=== PATIENT | male | born 1955 | race Caucasian/White ===

== ENCOUNTER 2023-06-07 21:17 | Emergency (ER) | payer BC, SELFPAY ==
[2023-06-07] VITALS (7 sets, daily range): BP systolic 132–150; BP diastolic 74–89; PULSE 98–120; RESP 20–22; TEMP 38; O2SAT 88–98; BMI 28.7
--- NOTE | 2023-06-07 22:32 | ED_ITS ---
HPI - General Adult General Chief complaint: Back Injury/Pain Stated complaint: fever-Had back surgery-Pain Time Seen by Provider: 06/07/23 21:49 History of Present Illness HPI narrative: hx small cell lung ca. Last chemo was last week . Had Spinal ablation 05/25 for chronic back pain. Comes into ED with increasing back pain took cyclobenza at 1900- did not try oxycodone which pt was prescribed. Also took THC gummy at 1600 for the pain. Was in ED last weekend for back pain. Rating back pain 6/7 no numbness/ tingling. Also has temp at home of 100.7 67-year-old man presenting to the emergency depart with complaint of back pain and fever. Pain and been in a band across his upper back and now it is centered he gestures to his mid sternum as in indication of where it is in his back. Has now also developed a fever as of today noting he was not feeling good. Primary complaint is that of pain. Is not complaining of increased shortness of breath. There are no new radicular symptoms. Has not been coughing. Is receiving chemotherapy for small cell lung cancer. 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 Approximately 4 weeks ago did receive radiation to the back and then about 2 weeks ago on 05/25 fractures were repaired with cement and ablation was also done. While pain was still present, was overall improved with pain so much that he felt he could picker feeder a storm door 3 days ago and had sudden increase in pain which has only escalated. He had actually been improved post ablation since 05/25 until this lifting episode. When the pain began to increase he did take 2 of the pain pills sounds like oxycodone but did not do anything. And then today was given cyclobenzaprine by spouse; she was afraid of taking the oxycodone at the same time. He does not normally take opiates apparently; has been getting by with acetaminophen. There is an underlying allergy to morphine with a history of difficulty breathing. Further questioning reveals he had been seen for this pain 2 days ago in emergency department. Imaging was not done but he did not have a fever at that time. Related Data Home Medications Medication Instructions Recorded Confirmed amlodipine 10 mg tablet 10 mg PO DAILY 06/07/23 06/07/23 lisinopril 20 mg tablet 20 mg PO DAILY 06/07/23 06/07/23 oxycodone 5 mg tablet 5 mg PO QID PRN 06/07/23 06/07/23 Allergies Allergy/AdvReac Type Severity Reaction Status Date / Time morphine Allergy Verified 06/07/23 21:41 Review of Systems Status of ROS: Reports: 6 or more systems reviewed and unremarkable except as noted in History and below [facility] Social History Smoking Status: Never smoker Do you use any of these nicotine containing products: None How often do you have a drink containing alcohol: never AUDIT-C Alcohol total score: 0 Non-prescribed substance use: denies use Exam Narrative: Exam Narrative: Flushed and very restless in pain. Belly breathing. Abdomen is protuberant soft and nontender. Oropharynx is dry. Cranial nerves 2-12 intact. Well-per fused peripherally. Skin as noted flushed. supervisor coke handling his face and back. Does not want to move though generally as it seems to exacerbate his pain. With assisted him able to manipulate him up to examine his back. I do not see any swellings or inflammation. Upper thoracic is the area of ablation though he did have 1 in the lower left. Lumbar area as well. Sites of procedures are not visible. He is little sore to palpation in the paraspinal musculature but not midline. Const: Vital Signs, click to edit/add: Vital Signs - 24 hr 06/07/23 21:52 06/07/23 22:29 06/07/23 23:07 Temperature 100.4 F H Pulse Rate Pulse Rate [Pulse Oximeter] 120 H 114 H 105 H Respiratory Rate 20 22 20 Blood Pressure Blood Pressure [Ri ght Upper Arm] 134/74 150/89 H Pulse Oximetry 98 94 91 Oxygen Delivery Me thod Room Air Room Air Room Air 06/07/23 23:14 06/07/23 23:15 06/07/23 23:30 Temperature Pulse Rate 105 H 103 H 99 Pulse Rate [Pulse Oximeter] Respiratory Rate Blood Pressure 132/83 Blood Pressure [Ri ght Upper Arm] Pulse Oximetry 91 88 92 Oxygen Delivery Me thod 06/07/23 23:45 06/08/23 00:01 06/08/23 00:01 Temperature Pulse Rate 98 98 98 Pulse Rate [Pulse Oximeter] Respiratory Rate Blood Pressure 137/74 137/74 Blood Pressure [Ri ght Upper Arm] Pulse Oximetry 92 91 91 Oxygen Delivery Me thod 06/08/23 01:01 Temperature Pulse Rate 95 Pulse Rate [Pulse Oximeter] Respiratory Rate Blood Pressure 138/87 Blood Pressure [Ri ght Upper Arm] Pulse Oximetry 94 Oxygen Delivery Me thod Documenting provider has reviewed patient's vital signs: yes Course Vital Signs Vital signs: Initial Vital Signs Temperature 100.4 F H 06/07/23 21:52 Temperature Source Temporal Artery Scan 06/07/23 21:52 Pulse Rate 120 H 06/07/23 21:52 Pulse Rhythm Regular 06/07/23 21:52 Respiratory Rate 20 06/07/23 21:52 Blood Pressure 134/74 06/07/23 21:52 Blood Pressure Mean 94 06/07/23 21:52 Pulse Oximetry 98 06/07/23 21:52 Oxygen Delivery Method Room Air 06/07/23 21:52 Vital Signs Temperature 100.4 F H 06/07/23 21:52 Pulse Rate 120 H 06/07/23 21:52 Respiratory Rate 20 06/07/23 21:52 Blood Pressure 134/74 06/07/23 21:52 Pulse Oximetry 98 06/07/23 21:52 Oxygen Delivery Method Room Air 06/07/23 21:52 Temperature 100.4 F H 06/07/23 21:52 Pulse Rate 95 06/08/23 01:01 Respiratory Rate 20 06/07/23 23:07 Blood Pressure 138/87 06/08/23 01:01 Pulse Oximetry 94 06/08/23 01:01 Oxygen Delivery Method Room Air 06/07/23 23:07 Medical Decision Making [facility] Narrative Medical decision making narrative: First need to control his pain. Seems as though this was an exacerbation an escalation of pain rather quickly after a particular event. Seems to have some muscular spasm? Fever has also evolved of unclear etiology at this time. Is tachycardic I think a a combination of the fever and pain response. Certainly in differential remains infection in spine secondary to this procedure. Otherwise in the setting of chemotherapy this may might also be a fever of unknown origin. IVs established. Will be drawing blood cultures. Searching sites for infection. Chest x-ray. Trial Dilaudid, normal saline hydration ketorolac. Will need to transition to oral pain medication as well. Reviewing labs there is some suppression of lymphocytes. Also concerning perhaps is the elevation of CRP to 23. Reviewing labs drawn recently as they were shown to me from my chart, does not appear that there is any baseline CRP. He is quite sedated with pain medication as above. Pain is markedly improved. Chest x-ray reviewed by me shows effusion and possible infiltrate at the right mid and lower lung. Unknown if these findings in chest x-ray represents new disease and therefore also this elevation of CRP and new fever. Negative for COVID. Would be helpful to have comparison of this chest x-ray. Anticipate discussing with care team at [facility] as well. MRI is not available at this time to image back optimally for infectious process. However it is possible that there was new fracture around surgical site and CT imaging might still be beneficial. Able to awake Mr. Dickinson to get him up sit him up and transition and rotate without any pain. I think if he would having an expanding or infectious etiology in the spine that this would not be as tolerable. At this point will be handing off change of shift Lab Data Lab results reviewed: Yes I reviewed the patient's lab results Labs: Lab Results 06/07/23 Range/Units 23:00 WBC 3.40 L (4.50-11.00) K/uL RBC 4.16 L (4.30-5.90) m/uL Hgb 12.9 L (13.5-17.5) gm/dL Hct 39.5 (37.0-53.0) % MCV 95 (80-100) fL MCH 31 (26-34) pg MCHC 33 (32-36) gm/dL RDW Coeff of Joi 15.0 (11.5-15.5) % Plt Count 203 (140-440) K/uL Neut % (Auto) 81.5 H (42.0-72.0) % Lymph % (Auto) 6.2 L (20-44) % [place] % (Auto) 3.8 (0.0-11.0) % Eos % (Auto) 0.6 (0.0-7.0) % Baso % (Auto) 0.0 (0.0-3.0) % Neut # (Auto) 2.80 (1.7-7.0) K/uL Lymph # (Auto) 0.20 L (0.90-2.90) K/uL [place] # (Auto) 0.10 (0.00-0.90) K/UL Eos # (Auto) 0.00 (0.00-0.50) K/uL Baso # (Auto) 0.00 (0.00-0.30) K/uL Abs Immat Gran (auto) 0.30 (0.00-0.30) K/uL Imm/Tot Granulo (auto) 7.9 % Sodium 133 L (135-149) mmol/L Potassium 4.3 (3.6-5.1) mmol/L Chloride 97 (96-114) mmol/L Carbon Dioxide 25 (20-32) mmol/L Anion Gap 11 (7-15) mEq/L BUN 15 (7-30) mg/dL Creatinine 0.5 (0.5-1.5) mg/dL Estimated Creat Clear 76.04 Estimated GFR 113 ml/min Glucose 187 H (60-115) mg/dL Calcium 8.9 (8.4-10.6) mg/dL C-Reactive Protein 23.1 H (0.5-1.0) mg/dL SARS-CoV-2 (PCR) Negative SARS-CoV-2 (Negative) Influenza Type A (PCR) Negative PCR FLU A (Negative) Influenza Type B (PCR) Negative PCR FLU B (Negative) Discharge Plan Discharge Clinical Impression: Acute exacerbation of chronic low back pain, Fever Prescriptions: No Action lisinopril 20 mg tablet 20 mg PO DAILY amlodipine 10 mg tablet 10 mg PO DAILY oxycodone 5 mg tablet 5 mg PO QID PRN Follow Up/Referrals: Karla Lowry PA-C [Primary Care Provider] -
[2023-06-07] MEDS: HYDROmorphone 0.5 mg/0.5 ml inj IVP (23:04)
[2023-06-07] MEDS: KETOROLAC 30 MG/ML inj IVP (23:04)
[2023-06-07] MEDS: 0.9 % SODIUM CHLORIDE 1000 ml 1,000 ML IV (23:06)
[2023-06-07 23:12] LABS: Eosinophils Percent Auto 0.6 % (0.0-7.0); Hematocrit 39.5 % (37.0-53.0); Hemoglobin* 12.9 gm/dL (13.5-17.5); Immature Granulocytes Pct Auto 7.9 %; Lymphocytes Percent Auto 6.2 % (20-44); Mean Corpuscular HGB Conc 33 gm/dL (32-36); Mean Corpuscular Hemoglobin 31 pg (26-34); Mean Corpuscular Volume 95 fL (80-100); Monocytes Percent Auto 3.8 % (0.0-11.0); Neutrophils Percent Auto 81.5 % (42.0-72.0); Platelet Count* 203 K/uL (140-440); Red Blood Count 4.16 m/uL (4.30-5.90)
[2023-06-07 23:19] LABS: Slide Review Reflex No
[2023-06-07 23:25] LABS: Chloride* 97 mmol/L (96-114); Potassium* 4.3 mmol/L (3.6-5.1); Sodium* 133 mmol/L (135-149)
[2023-06-07 23:28] LABS: Creatinine* 0.5 mg/dL (0.5-1.5); Est. Creatinine Clearance* 76.04; Estimated Glomerular Filt Rate 113 ml/min
[2023-06-07 23:29] LABS: Anion Gap 11 mEq/L (7-15); Blood Urea Nitrogen* 15 mg/dL (7-30); Calcium* 8.9 mg/dL (8.4-10.6); Carbon Dioxide* 25 mmol/L (20-32); Glucose* 187 mg/dL (60-115)
[2023-06-07 23:43] LABS: C Reactive Protein* 23.1 mg/dL (0.5-1.0)
[2023-06-07 23:48] LABS: PCR FLU A Negative PCR FLU A (Negative); PCR FLU B Negative PCR FLU B (Negative); SARS PCR* Negative SARS-CoV-2 (Negative)
[2023-06-08] VITALS (13 sets, daily range): BP systolic 127–144; BP diastolic 74–87; PULSE 86–98; RESP 18; TEMP 36.7–37.7; O2SAT 89–98
--- NOTE | 2023-06-08 | CRLHL7_ITS ---
For Patients: As a result of the Cures Act, medical imaging exams and procedure reports are released immediately into your electronic medical record. You may view this report before your referring provider. If you have questions, please contact your health care provider. Indication: Fever with upper thoracic pain, on chemotherapy Technique: Chest 1 view Comparison: None Findings/Impression: Cardiomegaly. Normal pulmonary vasculature. Moderate size right pleural effusion with patchy atelectasis or infiltrate at the right lung base. No pneumothorax. Right-sided Port-A-Cath tip terminates at the level of the proximal right atrium. Increased density over the mid thoracic spine may represent vertebroplasty material. Dictated by Madeline Scott MD @ 06/08/2023 12:48:44 AM (Electronically Signed)
--- NOTE | 2023-06-08 01:23 | CRLHL7_ITS ---
For Patients: As a result of the Cures Act, medical imaging exams and procedure reports are released immediately into your electronic medical record. You may view this report before your referring provider. If you have questions, please contact your health care provider. INDICATION: Upper back pain, no known trauma. Recent ablation on 05/25/2023. Evaluate fracture versus abscess. TECHNIQUE: CT thoracic spine without contrast. COMPARISON: Chest radiograph from earlier today. FINDINGS: Vertebrae: Alignment is normal. There are no fractures. Postprocedural changes following T5 vertebral augmentation with methylmethacrylate cement. A small amount of cement extends into the right pedicle. No epidural cement extension identified. Discs and facet joints: Severe degenerative disc disease at C6-C7. Extraspinal findings: Please refer to separate chest CT dictation for further details. Atherosclerotic aortic calcifications. Moderate to large right pleural effusion with partially visualized right lower and upper lobe consolidation. Central venous catheter tip is partially visualized within the right atrium. IMPRESSION: 1. Postprocedural changes following T5 vertebral augmentation. No acute osseous abnormality of the thoracic spine. Please note that CT is limited in detecting epidural abscess and subtle metastatic lesions. 2. Partially visualized moderate-large right pleural effusion and right upper and lower lobe consolidation. Please refer to separate chest CT for further details. Please note that all CT scans at this facility use dose modulation, iterative reconstruction, and/or weight-based dosing when appropriate to reduce radiation dose to as low as reasonably achievable. Dictated by Roseanne Buckley MD @ 06/08/2023 4:22:35 AM (Electronically Signed)
--- NOTE | 2023-06-08 01:34 | CRLHL7_ITS ---
For Patients: As a result of the Century Cures Act, medical imaging exams and procedure reports are released immediately into your electronic medical record. You may view this report before your referring provider. If you have questions, please contact your health care provider. INDICATION: Malignancy, fever, tachycardia. TECHNIQUE: CT chest PE was acquired with 95 cc Isovue 370 IV contrast. COMPARISON: Same day chest radiograph. FINDINGS: Heart and vasculature: Contrast opacification of the pulmonary arterial tree is adequate. No sign of pulmonary embolism. Mild cardiac enlargement. Mild enlargement of the main, right and left pulmonary arteries. Thoracic aorta is normal in caliber with mild atherosclerotic calcifications. Right internal jugular MediPort tip is in the superior cavoatrial junction. Atherosclerotic coronary artery calcifications Lungs and pleura: Moderate to large right pleural effusion. No left pleural effusion or pneumothorax. There is masslike consolidation within the right lower lobe with additional areas of consolidation involving the medial aspects of the right middle lobe and upper lobe. Bilateral pulmonary nodules, for example a 13 mm left upper lobe pulmonary nodule (series 5, image 89). Lymph nodes/mediastinum: Enlarged mediastinal and right hilar lymph nodes measuring up to 1.3 cm in short access in the right lower paratracheal region. Chest wall: No masses. Upper abdomen: Nodular thickening of the adrenal glands. Bones: Postprocedural changes of T5 vertebral augmentation. No acute fracture is identified. Please refer to separate thoracic spine CT for further evaluation. IMPRESSION: 1. No evidence of pulmonary embolism. 2. Moderate-large right pleural effusion with masslike consolidation within the right lung concerning for primary lung malignancy and postobstructive atelectasis. Additionally, there is mediastinal/hilar lymphadenopathy and bilateral pulmonary nodules concerning for metastatic disease. Limited evaluation for progression/changed given lack of cross-sectional comparisons. 3. Enlargement of the pulmonary arteries, which can be seen in setting of pulmonary hypertension. 4. Postprocedural changes following T5 vertebral augmentation. Please refer to dedicated thoracic spine CT for additional details. Please note that all CT scans at this facility use dose modulation, iterative reconstruction, and/or weight-based dosing when appropriate to reduce radiation dose to as low as reasonably achievable. Dictated by Roseanne Buckley MD @ 06/08/2023 4:41:43 AM (Electronically Signed)
[2023-06-08] MEDS: 0.9 % SODIUM CHLORIDE 1000 ml 1,000 ML IV (02:00)
[2023-06-08] MEDS: OxyCODONE/APAP 5-325 TABLET 2 TAB PO (02:40)
[2023-06-08] MEDS: levoFLOXacin 750 MG/150 ML 750 MG/150 ML PIGGYBACK 100 MG IVPB (05:00)
== END 2023-06-08 06:45 | disposition home or self-care (01) ==
PROVIDERS: Family Medicine; Emergency Provider Family Medicine; PCP Physician Assistant Medical
DX: M54.9 Dorsalgia, unspecified (principal); J90 Pleural effusion, not elsewhere classified
CPT/HCPCS: 36415; 71045; 71275; 72128; 80048; 81001; 85025; 86140; 87040; 87631; 94761; 96365; 96375; 99284; 99285; A9270; J1170; J1885; J1956; J7030; Q9967